=== PATIENT | female | born 1945 | race Caucasian/White ===

== ENCOUNTER 2021-12-30 04:16 | Day surgery (SDC) | payer OTHER ==
[2021-12-27 13:51] VITALS: BMI 32.2
[2021-12-30 09:32] VITALS: TEMP 97.6
[2021-12-30 10:28] VITALS: BP 109/71; PULSE 74
== END 2021-12-30 11:10 | disposition home or self-care (01) ==
LOC: JASU-ENDO 04:16
PROVIDERS: ATTEND Internal Medicine Gastroenterology
PROC: 0DJD8ZZ Inspection of Lower Intestinal Tract, Via Natural or Artificial Opening Endoscopic (ICD-10-PCS; principal; 2021-12-30 08:45)
DX: Z12.11 Encounter for screening for malignant neoplasm of colon (principal); K64.8 Other hemorrhoids; Z86.010 Personal history of colon polyps